=== PATIENT | male | born 1945 | race Caucasian/White ===

== ENCOUNTER → 2019-12-09 09:18 | Outpatient (CLI) | payer MEDICARE | END | disposition home or self-care (01) | LOC: D.ECHO 09:18 | PROVIDERS: ATTEND Internal Medicine Interventional Cardiology | DX: I67.89 Other cerebrovascular disease (principal); H53.10 Unspecified subjective visual disturbances; I42.9 Cardiomyopathy, unspecified ==

== ENCOUNTER 2019-12-27 18:21 | Observation (INO) | payer MEDICARE ==
[~2019-12-27] VITALS: Ht 182.9 cm; Wt 102.2 kg
[2019-12-27] VITALS (9 sets, daily range): BP systolic 95–118; BP diastolic 51–78; BMI 30.1
[2019-12-27] MEDS ORDERED: KLOR-CON M2020 MEQ PO (18:34)
[2019-12-27] MEDS ORDERED: MOBIC7.5 MG PO (18:34)
[2019-12-27] MEDS ORDERED: LASIX80 MG PO (18:35)
[2019-12-27] MEDS ORDERED: TOPROL XL100 MG PO (18:35)
[2019-12-27] MEDS ORDERED: GLUCOPHAGE850 MG PO (18:35)
[2019-12-27] MEDS ORDERED: CO Q-10100 MG PO (18:36)
[2019-12-27] MEDS ORDERED: ASPIRIN325 MG PO (18:36)
[2019-12-27] MEDS ORDERED: ZYLOPRIM100 MG PO (18:37)
[2019-12-27] MEDS ORDERED: CRESTOR10 MG PO (18:37)
[2019-12-27] MEDS ORDERED: ENTRESTO 24 MG1 EACH PO (18:38)
[2019-12-27] MEDS ORDERED: LYRICA150 MG PO (18:38)
[2019-12-27] MEDS ORDERED: XARELTO15 MG PO (18:39)
[2019-12-27] MEDS ORDERED: PACERONE100 MG PO (18:39)
--- NOTE | 2019-12-27 18:55 | NUR ---
REPORT TO RUBEN HARKINS
[2019-12-27 19:19] LABS: BASOPHILS 0.1 % (0-2); EOSINOPHILS 4.4 % (0-7); HEMATOCRIT 45.9 % (42.0-54.0); HEMOGLOBIN 16.1 g/dL (13.5-17.5); IMMATURE GRANULOCYTES 0.1 % (0-5); LYMPHOCYTES 22.3 % (15-50); MCHC 35.1 g/dL (31.0-37.0); MCV 91.3 fL (80.0-100.0); MEAN PLATELET VOLUME 11.3 fL (7.4-10.4); MONOCYTES 7.4 % (2-11); NEUTROPHILS 65.7 % (40-80); PLATELET COUNT 135 10x3/uL (130-400); RBC 5.03 10x6/uL (4.20-6.10); RDW 13.3 % (11.5-14.5); WBC 6.9 10x3/uL (4.8-10.8)
[2019-12-27 19:29] LABS: INR 1.71 (0.85-1.17); PROTIME 19.9 SECONDS (11.6-15.0)
[2019-12-27 19:30] LABS: APTT 39.6 SECONDS (22.8-39.4); CALC OSMOLALITY 288 mosm/kg (275-300); CALCIUM 8.8 mg/dL (8.5-10.1); CARBON DIOXIDE 31.6 mmol/L (21.0-32.0); CHLORIDE - SERUM 104 mmol/L (98-107); CREATININE - SERUM 1.4 mg/dL (0.6-1.3); GLUCOSE 112 mg/dL (74-106); POTASSIUM - SERUM 3.3 mmol/L (3.5-5.1); SODIUM 142 mmol/L (136-145); UREA NITROGEN 26 mg/dL (7-18); eGFR NON AFRICAN AMERICAN 53 mL/min (90-120)
[2019-12-27 19:47] LABS: ALBUMIN 4.5 g/dL (3.4-5.0); ALKALINE PHOSPHATASE 66 U/L (30-120); ALT (SGPT) 31 U/L (10-68); BILIRUBIN - TOTAL 1.12 mg/dL (0.2-1.3); CKMB 1.7 U/L (0.0-3.6); CREATINE KINASE 122 UL (21-232); PROTEIN - SERUM 7.3 g/dL (6.4-8.2); TROPONIN-I < 0.017 ng/mL (0.000-0.060)
[2019-12-27 20:24] LABS: APPEARANCE CLEAR (CLEAR); BILIRUBIN NEGATIVE (NEGATIVE); COLOR STRAW (YELLOW); GLUCOSE NEGATIVE (NEGATIVE); KETONE NEGATIVE (NEGATIVE); NITRITE NEGATIVE (NEGATIVE); PROTEIN NEGATIVE (NEGATIVE); UROBILINOGEN NORMAL (NORMAL)
--- NOTE | 2019-12-27 20:53 | NUR ---
FSBS 110
--- NOTE | 2019-12-27 22:12 | NUR ---
PT ARRIVED TO CVICU VIA ER BED WITH RUBEN RN AT BEDSIDE, PT AWAKE AND ALERT, AND=SWERS ALL QUESTIONS, RAJNI LLOYD AND OTHER FAMILY AT BEDSIDE, PT ABLE TO AMBULATE WITH MINIMAL ASSIST FROM ER BED TO CVICU BED, PT PLACED IN GOWN AND ICU MONITORS CONNECTED TO PT, VSS, PT ASSISTED TO BATHROOM PER REQUEST, CLEAR VOID NOTED, PT HAS 20g PIV IN RIGHT HAND SALINE LOCKED, PATENT WHEN FLUSHED WITH NS FLUSH, DRSG C/D/I, NS @125 INITIATED PER ORDERS VIA RT HAND PIV, PT DENIES PAIN, C/O PERIODS OF ACUTE VISION LOSS PT STATED "I JUST GO BLIND", EYES PERRL BILAT, PT STATES THAT VISION BLUR IN BILAT EYE BUT CAN SEE COLORS AND OBJECTS, PT WEARS GLASSES, PT DENIES CHEST PAIN AT THIS TIME, ALL PULSES PALPABLE, SCD'S PLACED ON BLE, BED ALARM ON, CALL LIGHT PLACED IN PT HAND AND REVIEWED USE, UNIT TEACHING PROVIDED, WILL CONTINUE TO MONITOR
--- NOTE | 2019-12-27 22:30 | NUR ---
PT OOB WITH ASSIST TO BATHROOM, MINIMAL ASSIST WITH AMBULATION, YELLOW VOID NOTED, ASSISTED BACK TO BED, REPOSITIONED FOR COMFORT WITHOUT ASSIST, VSS, PT ABLE TO ANSWER QUESTIONS, FAMILY AT BEDSIDE, [facility] ONTINUE TO MONITOR
--- NOTE | 2019-12-27 23:17 | NUR ---
DR PAGAN NOTIFIED OF PT'S BEHAVIOR AND ASSESSMENT. PT IS A LOW RISK. RESOURCES GIVEN AND HE VERBALIZES UNDERSTANDING.
[2019-12-28] VITALS (15 sets, daily range): BP systolic 98–129; BP diastolic 62–95; Ht 182.9 cm; Wt 102.2 kg
--- NOTE | 2019-12-28 00:56 | NUR ---
PAGED R/T CONSULT ORDERS
--- NOTE | 2019-12-28 01:00 | NUR ---
PT REMOVED B/P CUFF, RN AT BEDSIDE TO [place]CE B/P CUFF BACK ON PT, PT CONFUSED/DISSORIENTED TO SITUATION AND THAT HE IS IN HOSPITAL, REORRIENTED TO SITUATION AND PLACE, PT C/O HAVING ICU MONITORING DEVICES ON, TEACHING PROVIDED ON ALL MONITORING DEVICES(B/P CUFF, PULS OX, EKG LEADS, IV, IV FLUIDS, SCD'S, etc.) WILL CONTINUE TO MONITOR AND REORIENT NEEDED, PT REPOSITIONING SELF IN BED FO COMFORT, CALL LIGHT PLACED IN PT HAND AND REVIEWED USE OF CALL LIGHT, BED ALARM ON, VSS, WILL CONTINUE TO MONITOR
--- NOTE | 2019-12-28 01:30 | NUR ---
EKG COMPLETED AND PLACED IN CHART PER ORDERS
[2019-12-28 02:11] LABS: CREATINE KINASE 104 UL (21-232); TROPONIN-I < 0.017 ng/mL (0.000-0.060)
--- NOTE | 2019-12-28 03:03 | NUR ---
Patient was yelling out for nurse, upon entering the room patient appeared very upset and patient was stating what is going on I am all tangled up here. Patient was reoriented, patient states that he was in the hospital, but patient did not know what was going on. Patient was updated on the reason why he was in the hospital. Patient was reoriented to a client project coordinator, blood pressure monitor, pulse oximetry, and SCDs. Patient was assisted to get the monitoring equipment situated and the SCDs from pulling on his legs, patient was then assisted with covering up with a blanket and patient turned over on his side and stated he was, try to go to sleep. Vital signs stable at this time, no acute distress noted, will continue to monitor for changes.
--- NOTE | 2019-12-28 03:30 | NUR ---
PT KICKING ARMS AND LEGS IN BED, RN AT BEDSIDE, PT BEGAN TO RAISE VOICE IN ANGERED TONE STATING" I'M ALL HUNG UP IN THIS BED" WHILE POINTING TO LEGS/SCD'S, RNx2 AT BEDSIDE ATTEMPTING TO CALM PT, REMOVED SCD'S PER PT REQUEST, PT STATED " I KNOW IM AT THE HOSPITAL, AND SINCE IM PAYING THE BILL, DO SOMETHING ABOUT ME GETTING ALL TANGLED UP", RN X2 REPOSITIONED PT AND LINES IN BED, REORRIENTED PT TO MEDICAL EQUIPTMENT ( IV, B/P CUFF, PULS OX, SCD'S, CALL LIGHT, etc.), BED ALARM ON, CALL LIGHT PLACED IN PT HAND AND REVIEWED USE WITH PT, VSS, WILL CONTINUE TO MONITOR
--- NOTE | 2019-12-28 03:50 | NUR ---
PT PULLING LINES SITTING UP ATTEMPTING TO GET OUT OF BED, RNx2 AT BEDSIDE, PT CONFUSED/DISORIENTED TO SITUATION AND LOCATION, ABLE TO BE REORIENTED AND REPOSITIONED BACK IN BED, PT STATED " THIS BED IS UNCOMFORTABLE AND I HAVE BEEN FIGHTING WITH IT ALL NIGHT" REPOSITIONED PT AND LINES FOR COMFORT, LINENS REPLACED AND ADDITIONAL PILLOWS GIVEN TO ASSIST WITH COMFORT, CALL LIGHT IN PT HAND AND REVIEWED TEACHING WITH PT, BED ALARM ON, VSS, WILL CONTINUE TO MONITOR
--- NOTE | 2019-12-28 04:45 | NUR ---
PT ATTEMPTING TO GET OUT OF BED WITHOUT ASSIST, BED ALARM SOUNDED, RN AT BEDSIDE, PT AGRIVATED AND UPSET WITH BEING IN HOSPITAL, PT STATED " I DONT KNOW WHERE I AM, AND I AM CONNECTED TO ALL THESE LINES, GET ME OUT OF HERE." PT REORIENTED TO PLACE AND SITUATION, PT STATED HE NEEDS TO GO TO BATHROOM, PT ASSISTED OOB TO BATHROOM, CLEAR YELLOW VOID NOTED, ASSISTED PT BACK IN BED AND REPOSITIONED FOR COMFORT, CALL LIGHT PLACED IN PT HAND, BED ALARM ON, TEACHING PROVIDED ON FALL PREVENTION, WILL CONTINUE TO MONITOR
[2019-12-28 06:35] LABS: BASOPHILS 0.2 % (0-2); EOSINOPHILS 4.7 % (0-7); HEMATOCRIT 44.6 % (42.0-54.0); IMMATURE GRANULOCYTES 0.2 % (0-5); LYMPHOCYTES 27.9 % (15-50); MCH 31.3 pg (26.0-34.0); MCHC 33.6 g/dL (31.0-37.0); MCV 93.1 fL (80.0-100.0); MEAN PLATELET VOLUME 11.3 fL (7.4-10.4); MONOCYTES 6.6 % (2-11); NEUTROPHILS 60.4 % (40-80); PLATELET COUNT 125 10x3/uL (130-400); RBC 4.79 10x6/uL (4.20-6.10); RDW 13.5 % (11.5-14.5); WBC 6.2 10x3/uL (4.8-10.8)
[2019-12-28 07:08] LABS: ALBUMIN 3.9 g/dL (3.4-5.0); ALKALINE PHOSPHATASE 57 U/L (30-120); ALT (SGPT) 29 U/L (10-68); BILIRUBIN - TOTAL 0.99 mg/dL (0.2-1.3); CALC OSMOLALITY 297 mosm/kg (275-300); CALCIUM 8.4 mg/dL (8.5-10.1); CARBON DIOXIDE 34.2 mmol/L (21.0-32.0); CHLORIDE - SERUM 108 mmol/L (98-107); CREATINE KINASE 103 UL (21-232); CREATININE - SERUM 1.4 mg/dL (0.6-1.3); GLUCOSE 121 mg/dL (74-106); PHOSPHOROUS 3.4 mg/dL (2.5-4.9); POTASSIUM - SERUM 3.8 mmol/L (3.5-5.1); PROTEIN - SERUM 6.4 g/dL (6.4-8.2); SODIUM 147 mmol/L (136-145); TROPONIN-I < 0.017 ng/mL (0.000-0.060); UREA NITROGEN 26 mg/dL (7-18); eGFR NON AFRICAN AMERICAN 53 mL/min (90-120)
--- NOTE | 2019-12-28 09:24 | NUR ---
0700 PT RECIEVED ALERT AND ORIENTED, SLIGHTLY CONFUSED TO SITUATION, EASILY REORIENTED, RHAND PIV INFUSING, DRESSING CDI, VSS, DENIES ALL NEEDS, AWAITING SWALLOW EVAL, PAGED DR BEARD TO NOTIFY OF CONSULT 0900 PTS HERE FOR VISITATION, UPDATE PROVIDED, CALLED DR ALMAGUER OFFICE AND NOTIFIED OF CONSULT
--- NOTE | 2019-12-28 10:24 | NUR ---
FAMILY SPOKE WITH JOAQUINA MEZA AND WILL BE IN WAITING ROOM TO WAIT TO SPEAK TO DR MARIEE.
--- NOTE | 2019-12-28 10:59 | NUR ---
1045 PT YELLING IN ROOM STATED HE IS CONFUSED AND DOESNT KNOW HOW TO USE CALL LIGHT, REORIENTED TO CALL LIGHT AND THAT HE IS HERE FOR CONFUSION, REPOSITIONED. 1055 CALLED TO PT ROOM BY BED ALARM, PT SITTING ON SIDE OF BED, STATED HE IS CONFUSED TO WHERE HE IS, ATTEMPTED TO REORIENT, PT GRABBED MY ARM AND SQUEEZED STATING HE DIDNT KNOW WHERE HE WAS. TOLD PT TO NOT GRAB ME AND TO LAY BACK DOWN IN THE BED, REORIENTED, TV ON HICKS REQUESTED, CALL LIGHT WITHIN REACH, CHARGE NURSE AWARE.
--- NOTE | 2019-12-28 11:33 | NUR ---
TECH AT BEDSIDE. PT CALLED AND CAME INTO UNIT STATING "MY HUSBANDS PANICKING CAN I SEE HIM" ALLOWED TO SEE AND RETURNED TO WAITING ROOM
--- NOTE | 2019-12-28 11:39 | NUR ---
SPOKE WITH SPRAY GUN STRIPER, AWARE OF PTS SITUATION, STATED DR MARIEE WAS ON HIS WAY TO UNIT, NOTIFIED AND BROUGHT TO BEDSIDE
--- NOTE | 2019-12-28 11:54 | NUR ---
SPOKE WITH CT TO VERIFY ORDERS SPOKE WITH LUCINDA IN PHARMACY TO GET LOVENOX
--- NOTE | 2019-12-28 12:07 | NUR ---
PT TO CTA
--- NOTE | 2019-12-28 12:24 | NUR ---
PT BACK TO UNIT, AT BEDSIDE
[2019-12-28 13:30] LABS: ERYTHROCYTE SEDIMENTATION RATE 3 mm/hr (0-20)
--- NOTE | 2019-12-28 13:42 | NUR ---
CALLED CTA RESULTS TO DR MARIEE, ORDERS TO WORK ON TRANSFER TO [facility] FOR NEURO, CASE MANAGEMENT AWARE
--- NOTE | 2019-12-28 14:09 | MORECARE ---
CASE MANAGEMENT DISCHARGE SUMMARY PATIENT: CONSTANTINE KNIGHT UNIT: [id number] ADM DATE: 12/27/19 AGE: 74 : 47 SEX: M [facility] AUTHOR: ARTUR SHOEMAKER PHYSICIAN: REFERRING PHYSICIAN: MISHA MARIEE MD DATE OF SERVICE: 12/28/19 Discharge Plan Patient Name: CONSTANTINE KNIGHT [facility] [facility] 1945 Planned Disposition: Anticipated Discharge Date: Discharge Date: Expected LOS: Initial Reviewer: [email or web address] Initial Review Date: 12/27/2019 Generated: 12/28/19 3:09 pm External Providers External Provider: [facility]ANS-TRANSFER CALL [facility] Next Contact Date: Service Request Date: Service Type: Resolution: Reviewer: Comments: Patient Name: CONSTANTINE KNIGHT Page [phone] at 1409 All edits/amendments must be made on the electronic document DICTATION DATE: 12/28/19 140 TELEPHONE BETTING CLERK: ELIZABETH 12/28/19 1409 RPT#: [id number] DC DATE: STATUS: ADM IN [facility] [address] [place] [address] END OF REPORT
--- NOTE | 2019-12-28 14:18 | MORECARE ---
CASE MANAGEMENT DISCHARGE SUMMARY PATIENT: CONSTANTINE KNIGHT UNIT: [id number] ADM DATE: 12/27/19 AGE: 74 : 47 SEX: M ROOM/BED: D[facility] AUTHOR: ARTUR SHOEMAKER PHYSICIAN: REFERRING PHYSICIAN: MISHA MARIEE MD DATE OF SERVICE: 12/28/19 Discharge Plan Patient Name: CONSTANTINE KNIGHT [facility] [facility] 1945 Planned Disposition: Anticipated Discharge Date: Discharge Date: Expected LOS: Initial Reviewer: [email or web address] Initial Review Date: 12/27/2019 Generated: 12/28/19 3:18 pm Comments DCP- Discharge Planning Updated by [email or web address]: Khushboo Thompson on 12/28/19 1:[address] CM received notification that patient needs transferred to [facility] for Neuro. CM called transfer center and faxed packet to transfer center. CM called hospitality housekeeper and left message regarding transfer. CM will continue to follow and assist as needed with discharge planning / needs. Last DP export: 12/28/19 1:09 p Patient Name: CONSTANTINE KNIGHT Page [phone] at 1418 All edits/amendments must be made on the electronic document DICTATION DATE: 12/28/191417 HOME LENDING OFFICER: ELIZABETH 12/28/191417 RPT#: [id number] DC DATE: STATUS: ADM IN [facility] [address] [place] [address] END OF REPORT
[2019-12-28 14:19] LABS: CREATINE KINASE 100 UL (21-232); TROPONIN-I < 0.017 ng/mL (0.000-0.060)
--- NOTE | 2019-12-28 15:35 | NUR ---
CHG BATH AND LINEN CHANGE DONE, PT REQUESTED TO BE UP IN CHAIR, CHAIR ALARM IN PLACE AND VERIFIED TO BE WORKING
--- NOTE | 2019-12-28 17:30 | NUR ---
PT TO TRANSFER TO [facility] FOR NEURO, PT AND IN AGREEMENT.
--- NOTE | 2019-12-28 18:21 | NUR ---
TRANSFER PAPERWORK SIGNED BY CAFETERIA ASSISTANT, CASE MANAGEMENT NOTIFIED [facility], AWAITING TRANSFER, AND PT AWARE
--- NOTE | 2019-12-28 18:27 | NUR ---
DINNER TRAY ARRIVED FROM DIETARY AND PROVIDED TO PT
--- NOTE | 2019-12-28 19:52 | NUR ---
MAYRA RN @ [facility] CALLED, UPDATE GIVEN, MAYRA WANTED TO KNOW WHEN PT WOULD BE TRANSFERED, INFORMED [facility]RA HARKINS THAT AMBULANCE HAS BEEN CALLED AND WAITING FOR [facility] TO TRANSFER PT. NO FURTHER AT THIS TIME
--- NOTE | 2019-12-28 19:56 | NUR ---
CALLED [facility] GRICELDA SPOKE WITH [facility], CONFIRMED WITH [facility] THAT THEY WERE AWARE OF TRANSFER, [facility] STSTED " UNIT SHOULD BE THERE IN 45min -1 HOUR" NO FURTHER AT THIS TIME. PT AND FAMILY UPDATED
--- NOTE | 2019-12-28 20:00 | NUR ---
DAVID WITH [facility] CALLED CVICU, [facility] CALLED [facility] TO ASSIST IN TRANSFERING PT TO [facility] LR AND [facility] NEEDED FURTHER INFORMATION ABOUT PT PRIOR TO ACCEPTING, REPORT GIVEN TO DAVID HERNANDEZ STATED [facility] WILL ACCEPT TRANSFERR AND WILL BE ENROUT TO [facility] CVICU SOON [facility] ARRIVES. [facility] DISBATCH [facility] CALLED TO CONFIRM THEY ARE HAVING [facility] TRANSFER PT.
--- NOTE | 2019-12-28 20:30 | NUR ---
MAYRA WITH [facility] CALLED, STATED PT WILL NOW BE GOING TO ROOM 2088 ON [address] UNIT AT [facility], REPORT TO BE CALLED TO UNIT RN
--- NOTE | 2019-12-28 20:41 | NUR ---
DAVID WITH [facility] CALLED TO CONFIRM THAT THEY WILL BE TRANSFERRING PT TO LR, ETA TO NP IS 55min.
--- NOTE | 2019-12-28 20:50 | NUR ---
[facility] GRIFFITH CALLED TO GIVE REPORT, MICK HARKINS ACCEPTING REPORT, PT WILL BE GOING TO ROOM 2088
--- NOTE | 2019-12-28 21:15 | NUR ---
REPORT CALLED TO [facility]WEST UNIT AZRA HARKINS, UPDATED ON PT AND TRANSFER, ISABELLA HARKINS STATED " ROOM 2076" NOW WHERE PT DESTINATION.
--- NOTE | 2019-12-28 21:30 | NUR ---
[facility] AT BEDSIDE, ASSISTED PT TO STRETCHER, RIGHT 20g PIV C/D/I PATENT, SALINE LOCKED, VSS, PT DENIES PAIN OR NEEDS AT THIS TIME, REPORT GIVEN AT BEDSIDE TO DAVID RIVERS, FAMILY UPDATED ON WHERE PT WILL BE ADMITED TO AT [facility], ROOM [address] [place] [address], [facility]RA HARKINS WILL BE ACCEPTING.
--- NOTE | 2019-12-29 15:48 | MORECARE ---
CASE MANAGEMENT DISCHARGE SUMMARY PATIENT: CONSTANTINE KNIGHT UNIT: [id number] ADM DATE: 12/27/19 AGE: 74 : 47 SEX: M ROOM/BED: D[facility] AUTHOR: ARTUR SHOEMAKER PHYSICIAN: REFERRING PHYSICIAN: MISHA MARIEE MD DATE OF SERVICE: 12/29/19 Discharge Plan Patient Name: CONSTANTINE KNIGHT [facility] : 1945 Planned Disposition: Anticipated Discharge Date: Discharge Date: 12/28/2019 Expected LOS: Initial Reviewer: [email or web address] Initial Review Date: 12/27/2019 Generated: 12/29/19 4:47 pm Comments DCP- Discharge Planning Updated by [email or web address]: Khushboo Thompson on 12/28/19 1:[address] CM received notification that patient needs transferred to [facility] for Neuro. CM called transfer center and faxed packet to transfer center. CM called assistant executive housekeeper and left message regarding transfer. CM will continue to follow and assist as needed with discharge planning / needs. Last DP export: 12/28/19 1:18 p Patient Name: CONSTANTINE KNIGHT Page [phone] at 1548 All edits/amendments must be made on the electronic document DICTATION DATE: 12/29/19 1547 TRUCK SUPERVISOR: ELIZABETH 12/29/19 1547 RPT#: [id number] DC DATE:12/28/19 STATUS: DIS IN [facility] [address] [place] [address] END OF REPORT
== END 2019-12-28 21:30 ==
LOC: D.ER 18:21 → D.CVICU 20:19 → OBSVTIME 21:30 → D.CVICU 12-28 21:30
PROVIDERS: Family Medicine; ADMIT Internal Medicine Nephrology; ATTEND Internal Medicine Nephrology
DX: G93.40 Encephalopathy, unspecified (principal); E87.0 Hyperosmolality and hypernatremia; N17.9 Acute kidney failure, unspecified; D69.6 Thrombocytopenia, unspecified; I11.0 Hypertensive heart disease with heart failure; I50.22 Chronic systolic (congestive) heart failure; I42.9 Cardiomyopathy, unspecified; E78.5 Hyperlipidemia, unspecified; R26.9 Unspecified abnormalities of gait and mobility